=== PATIENT | male | born 1960 | race Caucasian/White ===

== ENCOUNTER → 2017-06-21 | Outpatient (CLI) | payer OTHER ==
[~2017-06-21] MED LIST: ATOR-22 PO; B-CO1CAP17 PO; COQ10 PO; FLUT1INH INH; IPRA1AER2 INH; METO50TA16 PO
[2017-06-21 17:30] LABS: BASO ABS # 0.12 K/uL (0-0.2); EOS % 1.6 %; EOS ABS # 0.19 K/uL (0-0.5); HEMOGLOBIN 15.9 g/dL (14.0-18.0); IG# 0.03 K/uL (0.00-0.02); LYMPH % 32.4 %; LYMPH ABS # 3.93 K/uL (1.2-3.4); MEAN CELL VOLUME 87.4 fL (80-100); MEAN CORPUSCULAR HEMOGLOBIN 29.6 pg (25-34); MEAN CORPUSCULAR HGB CONC 33.8 g/dl (32-36); MEAN PLATELET VOLUME 9.3 fL (7.4-10.4); MONO % 8.1 %; MONO ABS # 0.98 K/uL (0.11-0.59); NEUT % 56.7 %; NEUT ABS # 6.87 K/uL (1.4-6.5); PLATELET COUNT 411 K/uL (130-400); RED CELL DISTRIBUTION WIDTH CV 13.7 % (11.5-14.5); RED CELL DISTRIBUTION WIDTH SD 43.9 fL (36.4-46.3); WHITE BLOOD COUNT 12.12 K/uL (4.8-10.8)
[2017-06-21 18:01] LABS: BLOOD UREA NITROGEN 16 mg/dl (7-18); CALCIUM 9.3 mg/dl (8.5-10.1); CARBON DIOXIDE 27 mmol/L (21-32); CREATININE 1.12 mg/dl (0.60-1.40); GLUCOSE 83 mg/dl (70-99); POTASSIUM 4.4 mmol/L (3.5-5.1); SODIUM 139 mmol/L (136-145)
== END | disposition home or self-care (01) ==
LOC: C.LAB1850 16:10
PROVIDERS: ATTEND Surgery
DX: Z01.818 Encounter for other preprocedural examination (principal); R91.1 Solitary pulmonary nodule

== ENCOUNTER 2017-06-27 07:03 | Inpatient (IN) | payer OTHER ==
[~2017-06-27] VITALS: Ht 182.9 cm; Wt 100.0 kg
[2017-06-27] VITALS (11 sets, daily range): BP systolic 108–142; BP diastolic 67–82; PULSE 85–100; TEMP 36.4–37.2; O2SAT 91–97; Ht 182.9 cm; Wt 100.0 kg
[~2017-06-27 07:03] MED LIST changes: +LACTATED RINGER'S 1000ML 1,000 ML IV SCH; +PATIENT'S ALLERGY INFO NEEDS ENTERED SCH
[2017-06-27] MEDS ORDERED: FENTANYL CITRATE INJ 50 MCG/1 ML 2 ML VIAL ONE ×2 (08:09→08:38)
[2017-06-27] MEDS ORDERED: LIDOCAINE HCL 2% 2 ML VIAL (20MG/ML) ONE (08:09)
[2017-06-27] MEDS ORDERED: MIDAZOLAM HCL 1 MG/ML 2ML VIAL ONE (08:09)
[2017-06-27] MEDS ORDERED: ROCURONIUM BROMIDE 10 MG/ML 5 ML VIAL IV ONE ×2 (08:09→10:34)
[2017-06-27] MEDS ORDERED: PROPOFOL IV EMULSION 10 MG/ML 20 ML VIAL IV ONE ×2 (08:09→10:34)
--- NOTE | 2017-06-27 08:57 | History & Physical Bridge Note ---
H&P Re-Evaluation Bridge Note: I have examined the patient, reviewed the History & Physical and in the interval since the performance of the History & Physical I have noted the following changes of clinical significance: No changes noted
[2017-06-27] MEDS ORDERED: LABETALOL HCL IV 5 MG/ML 20ML IV PRN (09:00)
[2017-06-27] MEDS ORDERED: HYDROmorphone INJ 2 MG/ML SYR/VIAL IV PRN (09:00)
[2017-06-27] MEDS ORDERED: ONDANSETRON INJ 2 MG/ML 2 ML VIAL IV PRN ×2 (09:00→12:00)
[2017-06-27] MEDS ORDERED: KETOROLAC TROMETHAMINE 30 MG/ML VIAL IV. PRN (09:00)
[2017-06-27] MEDS ORDERED: ATROPINE SULFATE 0.1 MG/ML 5ML SYR IV PRN (09:00)
[2017-06-27] MEDS ORDERED: BUPIVACAINE LIPOSOME 1/3% 266 MG/20 ML VIAL INFIL ONE (09:11)
[2017-06-27] MEDS ORDERED: BUPIVACAINE 0.5 % 5 MG/1 ML MPF 30ML VIAL ONE (09:11)
[2017-06-27] MEDS ORDERED: SODIUM CHLORIDE 0.9% PF 50 ML VIAL ONE (09:11)
[2017-06-27] MEDS ORDERED: CEFAZOLIN SOD 1 GM VIAL ONE (10:34)
[2017-06-27] MEDS ORDERED: DEXAMETHASONE SOD INJ 4 MG/ML VIAL ONE (10:34)
[2017-06-27] MEDS ORDERED: ONDANSETRON INJ 2 MG/ML 2 ML VIAL ONE (10:34)
--- NOTE | 2017-06-27 11:53 | [facility] Post Operative Brief Note ---
Immediate Operative Summary Operative Date Jun 27, 2017. Pre-Operative Diagnosis Right Upper Lobe Nodule Post-Operative Diagnosis Same as preop Procedure(s) Performed Right Video Assisted Thoracoscopy with Right Upper Lobe Wedge Resection, with Mediastinal Lymphadenectomy Robot Assist Surgeon Dr. Dan Scanning Manager Surgeon(s) Gera Cardona PA-C Estimated Blood Loss 20 ml Findings Consistent with Post-Op Diagnosis Specimens Frozen 1. Right upper lobe wedge resection need diagnosis, hyperbolic mass Permanent A. Level 7 B. R 8 C. R 11 D. R 10 X 2 Anesthesia Type General
[2017-06-27] MEDS ORDERED: MoRPHine SULFATE 2 MG/ML CARP IV PRN (12:00)
[2017-06-27] MEDS ORDERED: NEOSTIGMINE METHYLSULFATE 5 MG/5 ML SYR ONE (12:06)
[2017-06-27] MEDS ORDERED: GLYCOPYRROLATE INJ 0.2 MG/ML VIAL ONE (12:06)
[2017-06-27] MEDS ORDERED: PHENYLEPHRINE HCL INJ 10 MG/ML VIAL ONE (12:26)
[2017-06-27] MEDS ORDERED: ESMOLOL HCL 10 MG/ML 10 ML VIAL ONE (12:26)
[2017-06-27] MEDS ORDERED: PHENYLEPHRINE 100MCG/ML 5ML SYR ONE (12:26)
--- NOTE | 2017-06-27 12:51 | DIAGNOSTIC IMAGING REPORT ---
CHEST ONE VIEW PORTABLE CLINICAL HISTORY: RUL wedge postoperative COMPARISON STUDY: 01/06/2011 FINDINGS: Postoperative changes right hemithorax. Right-sided chest tube in good position. No postprocedural pneumothorax possible minimal pleural separation right base measuring 4 mm. Mild left basilar atelectatic change. Left lung is otherwise clear. IMPRESSION: Unremarkable postoperative chest. Possible very small right basilar pneumothorax. The above report was generated using voice recognition software. It may contain grammatical, syntax or spelling errors. Electronically signed by: Orlando Figueroa M.D. 06/27/2017 12:49 PM Dictated Date/Time: 06/27/2017 12:47 PM
--- NOTE | 2017-06-27 12:51 | OPERATIVE REPORT ---
DATE OF OPERATION: 06/27/2017 PREOPERATIVE DIAGNOSIS: Hypermetabolic mass right upper lobe. POSTOPERATIVE DIAGNOSIS: Granulomatous mass right upper lobe. PROCEDURE: 1. Robot-assisted thoracoscopic wedge resection right upper lobe mass. 2. Mediastinal lymph node sampling. SURGEON: Skyler Dan MD. ASSISTANT ELEMENTARY TEACHER: GLADYS Curry. (Mr. Cardona was there for the entirety of the case. He helped manage the camera and also was at the bedside while I was at the console. He was there for the duration of the case and closed the skin incisions in the end.) ANESTHESIA: General anesthesia with endotracheal intubation with double-lumen tube. SPECIFICS OF PROCEDURE: This is a 57-year-old male, long history of cigarette smoking, who has bullous emphysema but was found to have a mass, it was hypermetabolic in the right upper lobe. We had a long discussion about this in the office. We felt that a wedge resection would be appropriate. It was actually surrounded by emphysematous lung, was not really a candidate for a biopsy and did not appear to be amenable for percutaneous biopsy nor an electromagnetic navigational bronchoscopy with biopsy. We did discuss possibly following this and repeating a CT scan in 3-6 months; however, the patient and his family were quite adamant they would like resolution, especially in view of the fact he had no extrathoracic spread. On 06/27/2017, the patient underwent uncomplicated right robot-assisted thoracoscopic wedge resection of the upper lobe. While waiting for the frozen section of this mass, I performed lymph node sampling and sampled level 7, 8, 10 and 11. We really got into no bleeding. We did a generous wedge. Frozen section showed this to be probable granulomatous disease but there was no evidence of malignancy. We did an Exparel block and closed. He tolerated it well, was extubated in the room. DETAILS OF PROCEDURE: The patient was brought to operating room and laid in supine position. General anesthesia induced and endotracheal intubation was performed with a double-lumen tube. After proper monitoring lines had been placed, the patient was placed in left lateral decubitus position, his right chest was prepped and draped in usual sterile fashion. After appropriate timeout had been called and prophylactic antibiotics were given, the patient had 5 thoracoscopy ports placed in the eighth interspace, starting just above the costal margin. We placed a fifth assistance port anteriorly in about the tenth interspace. Upon going in, we saw there were few adhesions from the upper lobe to the chest wall which were taken down sharply. I then placed an Endo-LOLLY stapler through the assistant front office manager port. I stapled a generous wedge of the upper lobe including a good amount of emphysematous lung. This was then removed through the assistant front office manager port and I could feel the mass within this. This was sent for frozen section. While waiting for this, we took down the posterior pleura and freed up the right mainstem bronchus. We took this all the way up to the azygos vein. I biopsied the level 7 and level 8 nodes on the right. I then pulled the lung posteriorly and approached this anteriorly. I dissected out level 10 node just below the azygos vein on the distal trachea. Coming along, we then freed up the tissue the artery from the vein at this point and dissected out level 11 node. At this point, frozen section came back as being granulomatous disease. Dr. Marvin Hercules from pathology felt we were dealing with a benign process. After irrigating out the chest and really not seeing much of an air leak, we proceeded with an Exparel block. 266 mg of Exparel mixed with 30 mL of 0.25% bupivacaine and 150 mL of normal saline. This was injected around all the port sites and then made an intercostal block from the 2nd to the 11th rib, filling the intercostal space with the liposomal bupivacaine solution. At this point, we then undocked, removed all the robotic instruments. Chest tube was placed in the anterior most thoracoscopy port, directed toward the apex and sutured in place with heavy silk suture. The larger trocar sites were closed with 0 Vicryl to close the muscle layers and 4-0 Monocryl was used in running subcuticular fashion to approximate the wound edges. He tolerated it well, was extubated in the room. Blood loss was negligible. I attest to the content of the Intraoperative Record and any orders documented therein. Any exception s are noted below.
[2017-06-27] MEDS ORDERED: METOCLOPRAMIDE HCL INJ 5 MG/ML 2 ML VIAL ONE (13:27)
[2017-06-27] MEDS ORDERED: KETOROLAC TROMETHAMINE 15 MG/ML VIAL IV. SCH (14:00)
--- NOTE | 2017-06-27 14:07 | Anesthesiology Progress Note ---
Anesthesia Post Op Note Date & Time Jun 27, 2017 at 14:07 Vital Signs Pain Intensity: 3.0 Vital Signs Past 12 Hours Date Time Temp Pulse Resp B/P (MAP) Pulse Ox O2 Delivery O2 Flow Rate FiO2 06/27/17 13:57 Nasal Cannula 2.0 06/27/17 13:55 94 Nasal Cannula 2.0 06/27/17 13:40 36.4 89 18 127/81 (96) Nasal Cannula 2.0 06/27/17 13:25 86 16 130/84 94 Nasal Cannula 2 06/27/17 13:15 87 19 128/91 95 Nasal Cannula 2 06/27/17 13:05 36.3 82 18 122/86 95 Nasal Cannula 2 06/27/17 12:45 83 15 143/93 96 Nasal Cannula 2 06/27/17 12:35 86 29 150/104 96 Oxymask 10 06/27/17 12:25 83 20 153/103 98 Oxymask 10 06/27/17 12:16 35.4 84 16 158/100 98 Oxymask 10 06/27/17 07:41 36.4 85 20 135/82 93 Room Air Notes Mental Status: alert / awake / arousable, participated in evaluation Pt Amnestic to Procedure: Yes Nausea / Vomiting: adequately controlled Pain: adequately controlled Airway Patency, RR, SpO2: stable & adequate BP & HR: stable & adequate Hydration State: stable & adequate Anesthetic Complications: no major complications apparent
[2017-06-27] MEDS: ACETAMINOPHEN IV 1,000 MG in EMPTY BAG 0 ML IV SCH ×2 (14:38→21:53)
[2017-06-27 15:03] LABS: CREATININE 1.32 mg/dl (0.60-1.40)
[2017-06-27] MEDS: D5W AND 1/2NSS 1,000 ML IV SCH (16:29)
[2017-06-27] MEDS ORDERED: NURSING VERBAL MED ORDER ONE (19:15)
[2017-06-27] MEDS: ATORVASTATIN 20 MG TAB PO SCH (20:50)
[2017-06-27] MEDS: IPRATROPIUM BROMIDE/ALBUTEROL respimat INH INH SCH (20:51)
[2017-06-27] MEDS: METOPROLOL TARTRATE 50 MG TAB PO SCH (20:53)
[2017-06-27] MEDS: DOCUSATE SODIUM 100 MG CAP PO SCH (20:53)
[2017-06-27] MEDS: KETOROLAC TROMETHAMINE 15 MG/ML VIAL IV. SCH (21:53)
[2017-06-27] MEDS: METOCLOPRAMIDE HCL INJ 5 MG/ML 2 ML VIAL IV. SCH (21:53)
[2017-06-28] MEDS: D5W AND 1/2NSS 1,000 ML IV SCH (01:18)
[2017-06-28 03:49] VITALS: BP 108/67; PULSE 87; TEMP 37.1; O2SAT 95
[2017-06-28] MEDS: KETOROLAC TROMETHAMINE 15 MG/ML VIAL IV. SCH ×3 (05:40→21:51)
[2017-06-28] MEDS: METOCLOPRAMIDE HCL INJ 5 MG/ML 2 ML VIAL IV. SCH (05:40)
[2017-06-28] MEDS: ACETAMINOPHEN IV 1,000 MG in EMPTY BAG 0 ML IV SCH (05:40)
--- NOTE | 2017-06-28 07:01 | DIAGNOSTIC IMAGING REPORT ---
CHEST ONE VIEW PORTABLE CLINICAL HISTORY: 57 years-old Male presenting with RUL wedge. TECHNIQUE: Portable upright AP view of the chest was obtained. COMPARISON: 06/27/2017. FINDINGS: Large bore right pleural drain remains positioned at the right apex. Cardiac silhouette normal in size. Persistent if not increased pulmonary vascular prominence. Persistent bandlike opacity in the lingula. Prominent lung markings increased from prior diffusely most pronounced in the right lung. A suture margin may be present in the right mid to upper lung. No large pneumothorax or pleural effusion. Osseous structures normal. Upper abdomen normal. IMPRESSION: 1. Large bore right neural drain. No pneumothorax. 2. Findings suggest volume overload, worsened from prior. 3. Chronic lingular atelectasis/scarring or a prominent pericardial fat pad. Electronically signed by: Tuan Gloria M.D. 06/28/2017 7:00 AM Dictated Date/Time: 06/28/2017 6:58 AM
[2017-06-28 07:25] LABS: ALBUMIN 3.1 gm/dl (3.4-5.0); CALCIUM 8.6 mg/dl (8.5-10.1); CREATININE 1.33 mg/dl (0.60-1.40); PHOSPHORUS 2.5 mg/dl (2.5-4.9); POTASSIUM 4.1 mmol/L (3.5-5.1)
[2017-06-28 07:50] VITALS: BP 116/70; PULSE 82; TEMP 37; O2SAT 92
[2017-06-28 08:00] VITALS: O2SAT 92
[2017-06-28] MEDS ORDERED: NON-FORMULARY MEDICATION ([Coq10] 1 TAB) PO SCH (09:00)
[2017-06-28] MEDS: DOCUSATE SODIUM 100 MG CAP PO SCH ×2 (09:06→20:55)
[2017-06-28] MEDS: NEPHROCAPS PO SCH (09:06)
[2017-06-28] MEDS: METOPROLOL TARTRATE 50 MG TAB PO SCH ×2 (09:07→20:55)
[2017-06-28] MEDS: IPRATROPIUM BROMIDE/ALBUTEROL respimat INH INH SCH ×2 (09:07→20:55)
[2017-06-28] MEDS: ENOXAPARIN 40 MG/0.4 ML SYR SQ SCH (09:10)
--- NOTE | 2017-06-28 10:13 | SURGERY PROGRESS NOTE ---
DATE: 06/28/2017 Mr. Ackerman is seen today. He looks great clinically. I detect very little in the way of subcutaneous emphysema on palpation. He is on room air. He is ambulating in the hallway. He is tolerating p.o. well. His chest tube has very little in the way of drainage; however, he has a significant air leak. He did not have an air leak in the operating room. He has markedly emphysematous lung. I am concerned that he may be leaking from a staple line. The fact that his lung is expanded on chest x-ray and he has very little drainage makes him a candidate for a Heimlich valve. I have also discussed the possibility of taking him back to the operating room tomorrow for a thoracoscopy and repair of this air leak. The problem is he has marked emphysema of that right upper lobe. We have already removed a good one-third of that lobe which is mostly emphysematous lung. There is a possibility we would have to proceed with a lobectomy. We have already mobilized the vessels and it would not be difficult to do. I would prefer simply to repair it; however, repairing is going to require removing more emphysematous lung and I do not want to leave him with an air leak. Hopefully, his air leak will slow down and we can avoid a reoperation.
[2017-06-28] MEDS: ACETAMINOPHEN 325 MG TAB PO SCH ×3 (11:58→23:31)
[2017-06-28 15:42] VITALS: BP 135/78; PULSE 78; TEMP 36.8; O2SAT 92
[2017-06-28] MEDS: OXYCODONE HCL IR 5 MG TAB (IMMEDIATE RELEASE) PO PRN (20:54)
[2017-06-28] MEDS: ATORVASTATIN 20 MG TAB PO SCH (20:55)
[2017-06-28 20:56] VITALS: BP 158/92; PULSE 75
[2017-06-28 23:53] VITALS: BP 163/89; PULSE 70; TEMP 36.5; O2SAT 95
[2017-06-29] MEDS: OXYCODONE HCL IR 5 MG TAB (IMMEDIATE RELEASE) PO PRN (04:53)
[2017-06-29 04:54] VITALS: BP 155/91; O2SAT 96
[2017-06-29] MEDS: ACETAMINOPHEN 325 MG TAB PO SCH (05:45)
[2017-06-29] MEDS: KETOROLAC TROMETHAMINE 15 MG/ML VIAL IV. SCH (05:45)
--- NOTE | 2017-06-29 06:54 | DIAGNOSTIC IMAGING REPORT ---
CHEST ONE VIEW PORTABLE CLINICAL HISTORY: wedge resection COMPARISON STUDY: 06/28/2017 FINDINGS: The cardiac images so contours remain stable. There is persistent asymmetric interstitial thickening right greater than left. This likely represents asymmetric interstitial edema although interstitial inflammatory process could appear similar. The right-sided chest tube remains unchanged in position. There is no pneumothorax.[ Left basilar atelectatic changes persist. IMPRESSION: No change from the preceding study. The right-sided chest tube remains unchanged in position. There is no pneumothorax. Asymmetric interstitial opacities, likely represent asymmetric interstitial edema. Electronically signed by: Dwain Webster M.D. 06/29/2017 6:53 AM Dictated Date/Time: 06/29/2017 6:51 AM
[2017-06-29 07:21] VITALS: BP 146/88; PULSE 77; TEMP 36.6; O2SAT 91
[2017-06-29 07:45] VITALS: O2SAT 95
[2017-06-29 08:22] VITALS: O2SAT 95
[2017-06-29] MEDS ORDERED: RXC5 PO (08:57)
[2017-06-29] MEDS: ENOXAPARIN 40 MG/0.4 ML SYR SQ SCH (09:00)
[2017-06-29] MEDS ORDERED: LORA-741 PO (09:02)
[2017-06-29] MEDS ORDERED: ACET-1047 PO (09:02)
[2017-06-29] MEDS: IPRATROPIUM BROMIDE/ALBUTEROL respimat INH INH SCH (09:02)
[2017-06-29] MEDS: NEPHROCAPS PO SCH (09:02)
[2017-06-29] MEDS ORDERED: IBUP-1050 PO (09:02)
[2017-06-29] MEDS ORDERED: CLC100 PO (09:02)
[2017-06-29] MEDS: DOCUSATE SODIUM 100 MG CAP PO SCH (09:02)
[2017-06-29] MEDS: METOPROLOL TARTRATE 50 MG TAB PO SCH (09:03)
--- NOTE | 2017-06-29 09:04 | Discharge Instructions ---
Discharge Instructions Date of Service Jun 29, 2017. Admission Reason for Admission: Lung Nodule Discharge Discharge Diagnosis / Problem: Lung Nodule Discharge Goals Goal(s): Learn about illness Activity Recommendations Activity Limitations: as noted below Lifting Limitations: none 1. Do not drive if taking oxycodone. 2. Do not drive until cleared by Dr. Dan. 3. Do not shower until cleared to do so by Dr. Dan. . Instructions / Follow-Up Instructions / Follow-Up 1. Empty drainage container as needed and records amounts drained. 2. Office appointment with Dr. Dan on Sunday, July 02, 2017 @ 11:30. Go to hospital 1 hour before appointment to have a Chest x-ray taken. Current Hospital Diet Patient's current hospital diet: Regular Diet Discharge Diet Recommended Diet: Regular Diet Procedures Procedures Performed: Right Video Assisted Thoracoscopy with Right Upper Lobe Wedge Resection, with Mediastinal Lymphadenectomy Robot Assist Pending Studies Studies pending at discharge: no Medical Emergencies . Who to Call and When: Medical Emergencies: If at any time you feel your situation is an emergency, please call 911 immediately. . Non-Emergent Contact Non-Emergency issues call your: Surgeon Call Non-Emergent contact if: you have a fever, your pain is not controlled, wound has increased drainage . "Provider Documentation" section prepared by Gera Cardona. .
[2017-06-29 09:47] VITALS: BP 146/88; PULSE 77; TEMP 36.6; O2SAT 95
--- NOTE | 2017-06-29 16:08 | DISCHARGE SUMMARY ---
DISCHARGE DIAGNOSES: 1. Granulomatous mass, right upper lobe. 2. Marked bullous emphysema. 3. History of cigarette smoking. HOSPITAL COURSE: Arthur Ackerman is a very nice 57-year-old male who had a mass which was hypermetabolic in his right upper lobe and it was surrounded by emphysematous lung. On 06/27/2017, I took patient to operating room, did a robot-assisted thoracoscopic wedge resection and dissected out multiple lymph nodes. I was prepared to do a lobectomy on Mr. Ackerman; however, I wedged out about 1/3 of the upper lobe and the mass turned out on frozen section to be a granuloma. We sent it for culture. He did very well, did not have an air leak in the operating room. He had a tiny air leak in the postanesthesia care unit; however, it was very large by the time he reached the third floor. I had a long talk with patient's family, contemplated taking him back the next day. It should be noted he never had a pneumothorax. He was also not draining much fluid. I put a Heimlich valve on him on postop day 1 and he was ambulating in the hallway. Tolerating regular diet. His chest x-ray looked great. I kept Mr. Ackerman n.p.o. on the night of 06/28/2017 as I felt I may want to take him back and repair his lung; however, there were couple of issues which were discussed fully before making the decision to handle this. First of all, his upper lobe was markedly emphysematous. I knew going in, we had to staple across some emphysematous lung; however, we had taken out a generous portion of the upper lobe. One option would have been to do a right upper lobectomy, however, this was for benign disease. The other option would be to take patient back to the operating room, repeat our thoracoscopy and repair an air leak. The problem was we were still dealing with emphysematous lung, and I explained to patient and his family that it was possible we could go ahead and repair the leak and he could be leaking postoperatively. My fear was that he simply coughed and he had markedly emphysematous lung and leaked from the staple line and that is why he was leaking. The fact that we did not drain much fluid and also especially the fact that his lung was fully expanded with a Heimlich valve in place, weighed into our decision. After a long discussion with patient and his family, we elected to proceed with sending him home with a Heimlich valve. I gave him my cell phone number. I will keep in touch with him this weekend. I will see him back in the office on Sunday. His leak seemed a bit better to me on postop day 2, which is why we sent him home. At this point, I was quite happy with him and his incisions all looked good and he looked good. He did have a bit of anxiety about this; however, he felt better after I gave him my cell phone number and told him I will be around all weekend and simply to call me should he run into any problems. Incidentally, his saturations were 95% on room air. HOWARD
== END 2017-06-29 12:10 | disposition home or self-care (01) | DRG 167 ==
LOC: C.ACU 07:03 → C.MSW 07:54 → ENRESERV 13:04
PROVIDERS: ADMIT Surgery; ATTEND Surgery
PROC: 0BBC4ZX Excision of Right Upper Lung Lobe, Percutaneous Endoscopic Approach, Diagnostic (ICD-10-PCS; principal; 2017-06-27 09:15)
PROC: 8E0W4CZ Robotic Assisted Procedure of Trunk Region, Percutaneous Endoscopic Approach (ICD-10-PCS; principal; 2017-06-27 09:15)
PROC: 07B74ZX Excision of Thorax Lymphatic, Percutaneous Endoscopic Approach, Diagnostic (ICD-10-PCS; principal; 2017-06-27 09:15)
DX: J84.10 Pulmonary fibrosis, unspecified (principal); J95.812 Postprocedural air leak; Z87.891 Personal history of nicotine dependence; I10 Essential (primary) hypertension; J43.9 Emphysema, unspecified; E78.5 Hyperlipidemia, unspecified; Z82.49 Family history of ischemic heart disease and other diseases of the circulatory system; Z83.3 Family history of diabetes mellitus; Z80.0 Family history of malignant neoplasm of digestive organs

== ENCOUNTER → 2017-07-02 | Outpatient (CLI) | payer OTHER ==
[~2017-07-02] MED LIST changes: +ACET-1047 PO; +CLC100 PO; +IBUP-1050 PO; -LACTATED RINGER'S 1000ML 1,000 ML IV SCH; +LORA-741 PO; -PATIENT'S ALLERGY INFO NEEDS ENTERED SCH; +RXC5 PO
--- NOTE | 2017-07-02 11:20 | DIAGNOSTIC IMAGING REPORT ---
CHEST 2 VIEWS ROUTINE CLINICAL HISTORY: R91.1 Lung [id number] lung nodule. Postoperative evaluation. COMPARISON STUDY: 06/29/2017. FINDINGS: Right-sided chest tube unchanged in position. Slight increase in volume of right-sided pneumothorax. Maximum pleural separation right apex is 8 mm. Mild dependent basilar platelike atelectasis. Lungs otherwise appear clear. IMPRESSION: Slight increase in volume of a right apical pneumothorax with a current maximum pleural separation of 8 mm. Study otherwise is unchanged. The above report was generated using voice recognition software. It may contain grammatical, syntax or spelling errors. Electronically signed by: Orlando Figueroa M.D. 07/02/2017 11:19 AM Dictated Date/Time: 07/02/2017 11:18 AM
== END | disposition home or self-care (01) ==
LOC: C.RAD 10:43
PROVIDERS: ATTEND Physician Assistant
DX: R91.1 Solitary pulmonary nodule (principal)

== ENCOUNTER → 2017-07-04 | Outpatient (CLI) | payer OTHER ==
--- NOTE | 2017-07-04 09:55 | DIAGNOSTIC IMAGING REPORT ---
CHEST 2 VIEWS ROUTINE CLINICAL HISTORY: 57 years-old Male presenting with R91.1 Lung [id number]. TECHNIQUE: PA and lateral views of the chest were obtained. COMPARISON: 07/02/2017. FINDINGS: Large bore right pleural drain remains at the right apex. Atherosclerosis of the aortic arch. Cardiac silhouette normal in size. A suture margin is suggested in the right mid to upper lung. Persistent blunting of the left costophrenic angle, likely prominent pericardial fat. Stable to slight interval decrease in size of the trace right apical pneumothorax. No large effusion. Osseous structures normal. Upper abdomen normal. IMPRESSION: 1. Stable to slight interval decrease in size of the trace right apical pneumothorax, which is visualized best on nonportable radiographs. Electronically signed by: Tuan Gloria M.D. 07/04/2017 9:53 AM Dictated Date/Time: 07/04/2017 9:51 AM
== END | disposition home or self-care (01) ==
LOC: C.RAD 09:19
PROVIDERS: ATTEND Surgery
DX: R91.1 Solitary pulmonary nodule (principal)

== ENCOUNTER → 2017-07-10 | Outpatient (CLI) | payer OTHER ==
--- NOTE | 2017-07-10 10:27 | DIAGNOSTIC IMAGING REPORT ---
CHEST 2 VIEWS ROUTINE CLINICAL HISTORY: R91.1 Lung [id number] COMPARISON STUDY: 06/26/2017 FINDINGS: There is pulmonary emphysema. The right-sided chest tube remains unchanged in position. There is a right apical pneumothorax. There are 2 pleural edge is. The maximal pleural separation of 24 mm. There are basilar atelectatic changes. The left lung appears generally clear.[ IMPRESSION: Postsurgical changes within the right hemithorax. Right apical pneumothorax with a maximal pleural separation of 24 mm. No change in the position of the right-sided chest tube. Electronically signed by: Dwain Webster M.D. 07/10/2017 10:26 AM Dictated Date/Time: 07/10/2017 10:24 AM
== END | disposition home or self-care (01) ==
LOC: C.RAD 09:45
PROVIDERS: ATTEND Physician Assistant
DX: R91.1 Solitary pulmonary nodule (principal); J93.9 Pneumothorax, unspecified

== ENCOUNTER → 2017-07-17 | Outpatient (CLI) | payer OTHER ==
[~2017-07-17] MED LIST changes: -LORA-741 PO
--- NOTE | 2017-07-17 11:00 | DIAGNOSTIC IMAGING REPORT ---
CHEST 2 VIEWS ROUTINE CLINICAL HISTORY: Lung nodule. Shortness of breath. COMPARISON STUDY: Chest radiograph July 10, 2017. FINDINGS: A right apical chest tube remains in place. There are postoperative findings within the right midlung with minimal adjacent opacity. There are mild bibasilar opacities. A small to moderate right apical pneumothorax has increased in size since exam of July 10, 2017. Superior pleural separation measures 2.8 cm. 2 pleural lines are noted. IMPRESSION: Moderate increase in size of a small to moderate right apical pneumothorax since exam of July 10, 2017. Right apical chest tube in place. Electronically signed by: Felice An M.D. 07/17/2017 10:58 AM Dictated Date/Time: 07/17/2017 10:56 AM
== END | disposition home or self-care (01) ==
LOC: C.RAD 09:47
PROVIDERS: ATTEND Physician Assistant
DX: R91.1 Solitary pulmonary nodule (principal); J93.9 Pneumothorax, unspecified; Z97.8 Presence of other specified devices

== ENCOUNTER → 2017-07-30 | Outpatient (CLI) | payer OTHER ==
--- NOTE | 2017-07-30 15:53 | DIAGNOSTIC IMAGING REPORT ---
CHEST 2 VIEWS ROUTINE CLINICAL HISTORY: J93.9 pneumothorax COMPARISON STUDY: 07/17/2017 FINDINGS: Mild decrease in volume of a right apical pneumothorax. Maximum clear pleural separation is 1.8 cm. A right lateral chest tube is unchanged in position. Mild bibasilar platelike atelectasis is present. IMPRESSION: Mild improvement of a right apical pneumothorax. Maximum pleural separation currently is 1.8 cm improved from the prior study of 2.8 cm. The above report was generated using voice recognition software. It may contain grammatical, syntax or spelling errors. Electronically signed by: Orlando Figueroa M.D. 07/30/2017 3:51 PM Dictated Date/Time: 07/30/2017 3:50 PM
== END | disposition home or self-care (01) ==
LOC: C.RAD 15:00
PROVIDERS: ATTEND Surgery
DX: J93.9 Pneumothorax, unspecified (principal)

== ENCOUNTER → 2017-08-07 | Outpatient (CLI) | payer OTHER ==
[~2017-08-07] MED LIST changes: -IBUP-1050 PO
--- NOTE | 2017-08-07 10:15 | DIAGNOSTIC IMAGING REPORT ---
TWO VIEW CHEST CLINICAL HISTORY: Follow-up status post right lung resection and pneumothorax. FINDINGS: PA and lateral chest radiographs are compared to study dated 07/30/2017 and correlated with chest CT dated 02/04/2017. The cardiomediastinal silhouette is unremarkable. Emphysema and chronic interstitial thickening are similar to previous. There are postoperative changes from right upper lobe pulmonary resection. Fluid is seen at the right lung base and there is bibasilar atelectasis. A right apical chest tube is unchanged in position. A persistent pneumothorax is suspected. The skeletal structures are osteopenic. The bony thorax appears intact. IMPRESSION: 1. A right-sided chest tube is unchanged in position. A small residual right apical pneumothorax is suspected. 2. Emphysema and postoperative change from right-sided pulmonary resection. 3. Trace pleural fluid is again seen at the right lung base. Electronically signed by: Bill Silva M.D. 08/07/2017 10:14 AM Dictated Date/Time: 08/07/2017 10:10 AM
--- NOTE | 2017-08-07 11:43 | DIAGNOSTIC IMAGING REPORT ---
TWO VIEW CHEST CLINICAL HISTORY: Status post chest tube removal. FINDINGS: PA and lateral chest radiographs are compared to study performed earlier the same day 08/07/2017 and correlated with chest CT dated 02/04/2017. The cardiomediastinal silhouette is unremarkable. Emphysema and chronic interstitial thickening are similar to previous. There are postoperative changes from right upper lobe pulmonary resection. Fluid is seen at the right lung base and there is bibasilar atelectasis. A right apical chest tube has been removed. A small residual and possibly loculated pneumothorax is suggestive the right apex. There are pulmonary markings above this line. The skeletal structures are osteopenic. The bony thorax appears intact. IMPRESSION: 1. A right-sided chest tube has been removed. A small residual and possibly loculated right apical pneumothorax is suspected. 2. Emphysema and postoperative change from right-sided pulmonary resection. 3. Trace pleural fluid is again seen at the right lung base. Electronically signed by: Bill Silva M.D. 08/07/2017 11:42 AM Dictated Date/Time: 08/07/2017 11:40 AM
== END | disposition home or self-care (01) ==
LOC: C.RAD 09:41
PROVIDERS: ATTEND Physician Assistant
DX: J93.9 Pneumothorax, unspecified (principal)

== ENCOUNTER → 2017-08-14 | Outpatient (CLI) | payer OTHER ==
--- NOTE | 2017-08-14 12:35 | DIAGNOSTIC IMAGING REPORT ---
CHEST 2 VIEWS ROUTINE HISTORY: 57 years-old Male J93.9 [id number] follow-up study in a patient with right-sided pneumothorax COMPARISON: Chest radiograph 08/07/2017 TECHNIQUE: PA and lateral views of the chest FINDINGS: Cardiac silhouette is within normal limits. Surgical suture material the right lung apex. Previously described right apical pneumothorax is not definitively seen on today's study. Emphysematous changes of the lungs with linear subsegmental bibasilar and perihilar opacities redemonstrated compatible with scarring/atelectasis. Trace right pleural effusion is unchanged. Bones of the chest appear grossly intact. IMPRESSION: 1. Postoperative changes of the right lung apex without definite residual pneumothorax identified. 2. Emphysema with bibasilar pleural parenchymal scarring/atelectasis. 3. Trace right pleural effusion. The above report was generated using voice recognition software. It may contain grammatical, syntax or spelling errors. Electronically signed by: Fabián Smith M.D. 08/14/2017 12:34 PM Dictated Date/Time: 08/14/2017 12:32 PM
== END | disposition home or self-care (01) ==
LOC: C.RAD1850 11:57
PROVIDERS: ATTEND Physician Assistant
DX: J93.9 Pneumothorax, unspecified (principal); J43.9 Emphysema, unspecified; J98.11 Atelectasis; J90 Pleural effusion, not elsewhere classified